=== PATIENT | male | born 1995 ===

== ENCOUNTER 2016-05-31 03:02 | Emergency (ER) | payer MEDICAID ==
--- NOTE | 2016-05-31 03:17 | C.PDOC ---
History Of Present Illness Patient presents to the ER with a complaint of a fever and cough for the past 2 days. Patient states he has had transient relief with Advil and is speaking in complete sentences. Denies any nausea, vomiting, or diarrhea. Time Seen by Provider: 05/31/16 03:17 Chief Complaint (Nursing): Fever History Per: Patient History/Exam Limitations: no limitations Onset/Duration Of Symptoms: Days (2) Current Symptoms Are (Timing): Still Present Associated Symptoms: Fever, Cough. denies: Vomiting, Diarrhea Severity: Moderate Pain Scale Rating Of: 4 Past Medical History Reviewed: Historical Data, Nursing Documentation, Vital Signs Vital Signs: Last Vital Signs Temp 101 F H 05/31/16 03:10 Pulse 90 05/31/16 03:10 Resp 18 05/31/16 03:10 BP 118/72 05/31/16 03:10 Pulse Ox 97 05/31/16 04:05 - Medical History PMH: Bronchitis Family History: States: Unknown Family Hx - Social History Hx Tobacco Use: No Hx Alcohol Use: No Hx Substance Use: No - Immunization History Hx Tetanus Toxoid Vaccination: No Hx Influenza Vaccination: No Hx Pneumococcal Vaccination: No Review Of Systems Constitutional: Positive for: Fever Cardiovascular: Negative for: Chest Pain, Palpitations Respiratory: Positive for: Cough. Negative for: Shortness of Breath Gastrointestinal: Negative for: Nausea, Vomiting, Diarrhea Physical Exam - Physical Exam Appears: Well, Non-toxic Skin: Warm, Dry Oral Mucosa: Moist Throat: Erythema (Oropharynx) Chest: Symmetrical Cardiovascular: Rhythm Regular Respiratory: No Rales, Rhonchi (Scattered), No Wheezing Gastrointestinal/Abdominal: Soft, No Tenderness Neurological/Psych: Oriented x3, Normal Speech, Normal Cognition ED Course And Treatment - Laboratory Results Result Diagrams: 05/31/16 03:44 05/31/16 03:44 O2 Sat by Pulse Oximetry: 97 (Room air) Pulse Ox Interpretation: Normal - Radiology CXR: Interpreted by Me, Viewed By Me CXR Interpretation: No: Infiltrates, Fracture, Pnemothorax Progress Note: Blood work, influenza A B, blood culture, chest x-ray, and urinalysis ordered. IV fluids and toradol IVP administered. Reevaluation Time: 05:43 Reassessment Condition: Improved Medical Decision Making Medical Decision Making: Upon provider reevaluation patient is feeling better, is medically stable, and requires no further treatment in the ED at this time. Patient will be discharged home . Counseling was provided and all questions were answered regarding diagnosis and need for follow up with the referred clinic. There is agreement to discharge plan. Return if symptoms persist or worsen. Disposition Counseled Patient/Family Regarding: Studies Performed, Diagnosis, Need For Followup - Disposition Referrals: [facility] at [facility] [Outside] Disposition: HOME/ ROUTINE Disposition Time: 03:17 Condition: FAIR Instructions: Viral Syndrome (ED), Fever in Adults (ED) - Clinical Impression Clinical Impression: Fever, Viral syndrome - Scribe Statement The provider has reviewed the documentation as recorded by the Scribe Donald Hutchinson All medical record entries made by the Clintibalexsander were at my direction and personally dictated by me. I have reviewed the chart and agree that the record accurately reflects my personal performance of the history, physical exam, medical decision making, and the department course for this patient. I have also personally directed, reviewed, and agree with the discharge instructions and disposition.
[2016-05-31] MEDS ORDERED: Sodium Chloride 0.9% 1,000 ML IV ONE ×2 (03:31→04:46)
[2016-05-31 03:53] LABS: BASO % 0.4 % (0.0-2.0); EOS % 0.3 % (0.0-4.0); LYMPH # 1.2 K/uL (1.0-4.3); LYMPH % 18.2 % (20.0-40.0); MEAN CELL VOLUME 86.5 fL (80.0-94.0); MEAN CORPUSCULAR HGB CONC 33.6 g/dL (33.0-37.0); MEAN PLATELET VOLUME 9.4 fL (7.2-11.7); MONO # 0.6 K/uL (0.0-0.8); MONO % 8.3 % (0.0-10.0); RED CELL DISTRIBUTION WIDTH 13.3 % (11.5-14.5); WHITE BLOOD COUNT 6.8 K/uL (4.8-10.8)
[2016-05-31 04:02] LABS: CHLORIDE 97 mmol/L (98-107); POTASSIUM 3.4 mmol/L (3.6-5.2); SODIUM 136 mmol/L (132-148)
[2016-05-31 04:04] LABS: GFR AFRICAN-AMERICAN > 60
[2016-05-31 04:05] LABS: BLOOD UREA NITROGEN 11 mg/dL (9-20); CALCIUM 8.2 mg/dl (8.6-10.4); CARBON DIOXIDE 25 mmol/L (22-30); GLUCOSE,RANDOM 93 mg/dL (75-110)
[2016-05-31 04:37] LABS: URINE BACTERIA RARE (<OCC); URINE BILIRUBIN NEGATIVE (NEGATIVE); URINE BLOOD NEGATIVE (NEGATIVE); URINE COLOR Yellow (YELLOW); URINE GLUCOSE (UA) NORMAL (Normal); URINE KETONE NEGATIVE (NEGATIVE); URINE LEUKOCYTE ESTERASE NEG Leu/uL (Negative); URINE PROTEIN NEGATIVE (NEGATIVE); URINE UROBILINOGEN NORMAL mg/dL (0.2-1.0); WBC URINE 1 /hpf (0-5)
[2016-05-31 06:43] VITALS: BP 126/84; PULSE 86; RESP 16; TEMP 99; O2SAT 98
--- NOTE | 2016-05-31 09:30 | RAD ---
HISTORY: SOB COMPARISON: Comparison is made to 08/04/2015 TECHNIQUE: Chest PA and lateral FINDINGS: LUNGS: No active pulmonary disease. PLEURA: No significant pleural effusion identified. No pneumothorax apparent. CARDIOVASCULAR: Normal. OSSEOUS STRUCTURES: No significant abnormalities. VISUALIZED UPPER ABDOMEN: Normal. OTHER FINDINGS: None. IMPRESSION: No active disease.
== END 2016-05-31 06:42 | disposition home or self-care (01) ==
LOC: C.ER 03:02
DX: B34.9 Viral infection, unspecified (principal); R50.81 Fever presenting with conditions classified elsewhere
CPT/HCPCS: 71020; 80048; 81001; 85025; 87040; 87804; 96361; 96374; 99284; J1885; J7040

== ENCOUNTER 2016-11-20 17:27 | Emergency (ER) | payer MEDICAID ==
[2016-11-20 17:47] VITALS: RESP 16; TEMP 98.5
--- NOTE | 2016-11-20 18:46 | C.PDOC ---
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 Patient states he did not take any medication.No h/o these similar symptoms. Patient denies trauma, fever, chest pain, SOB, neck pain or headache. Time Seen by Provider: 11/20/16 17:55 Chief Complaint (Nursing): Upper Extremity Problem/Injury History Per: Patient History/Exam Limitations: no limitations Onset/Duration Of Symptoms: Hrs (1hr PAPER SLITTER) Past Medical History Reviewed: Historical Data, Nursing Documentation, Vital Signs Vital Signs: Last Vital Signs Temp 98.5 F 11/20/16 17:43 Pulse 81 11/20/16 19:38 Resp 16 11/20/16 19:38 BP 125/85 11/20/16 19:38 Pulse Ox 98 11/20/16 19:38 - Medical History PMH: Bronchitis Family History: States: No Known Family Hx - Social History Hx Tobacco Use: No Hx Alcohol Use: Yes Hx Substance Use: No - Immunization History Hx Tetanus Toxoid Vaccination: No Hx Influenza Vaccination: No Hx Pneumococcal Vaccination: No Review Of Systems Except As Marked, All Systems Reviewed And Found Negative. Constitutional: Negative for: Fever Cardiovascular: Negative for: Chest Pain Respiratory: Negative for: Shortness of Breath Musculoskeletal: Positive for: Other ((+) Numbness and burning sensation to the left hand 1st, 2nd and 3rd digit). Negative for: Neck Pain Neurological: Negative for: Headache Physical Exam - Physical Exam Appears: Non-toxic, No Acute Distress Skin: Warm, Dry, No Rash Head: Atraumatic, Normacephalic Eye(s): bilateral: Normal Inspection, EOMI Nose: Normal Oral Mucosa: Moist Neck: Normal, Normal ROM, No Midline Cervical Tenderness, No Paracervical Tenderness, No Step Off Deformity, Supple Chest: Symmetrical, No Tenderness Cardiovascular: Rhythm Regular, No Murmur Respiratory: Normal Breath Sounds, No Rales, No Rhonchi, No Stridor, No Wheezing Extremity: Normal ROM, No Tenderness, Capillary Refill (<2 sec), No Swelling, Other (Left Hand - Has sensation but states "feels different".) Extremity: Bilateral: Normal Color And Temperature, Normal ROM Pulses: Left Radial: Normal, Right Radial: Normal Neurological/Psych: Oriented x3, Normal Speech, Normal Motor (5/5 against resistance) Gait: Steady ED Course And Treatment ECG: Interpreted By Me, Viewed By Me ECG Rhythm: Sinus Rhythm ECG Interpretation: Normal Rate From EC (BPM) O2 Sat by Pulse Oximetry: 99 (RA) Pulse Ox Interpretation: Normal Progress Note: Discussed with pt signs of concern and symptoms likely to nerve innflammation/ impingement. Instructed RICE and out pt follow up with PMD in 1- 2 days. Case disucssed with Dr Amezquita, agreed upon plan and discharge. Medical Decision Making Medical Decision Making: PLAN: * EKG Disposition - Disposition Referrals: Fuad Bar MD [Medical Doctor] - Disposition: HOME/ ROUTINE Disposition Time: 18:43 Condition: STABLE Additional Instructions: Rest and ice the area. Follow up with PMD in 1-2 days. 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 - Scribe Statement The provider has reviewed the documentation as recorded by the Scribe Kika Fenton All medical record entries made by the Scribe were at my direction and personally dictated by me. I have reviewed the chart and agree that the record accurately reflects my personal performance of the history, physical exam, medical decision making, and the department course for this patient. I have also personally directed, reviewed, and agree with the discharge instructions and disposition.
[2016-11-20 19:39] VITALS: BP 125/85; PULSE 81
[2016-11-20 21:02] VITALS: O2SAT 99
--- NOTE | 2016-11-23 16:08 | CARD ---
APPROVED REPORT EKG Measurement Heart [id number] ID [id number] <Conclusion> Normal sinus rhythm Normal ECG
== END 2016-11-20 19:38 | disposition home or self-care (01) ==
LOC: C.ER 17:27
DX: G56.02 Carpal tunnel syndrome, left upper limb (principal)

== ENCOUNTER 2018-02-12 20:14 | Emergency (ER) | payer OTHER, MEDICAID ==
[2018-02-12 20:30] VITALS: BP 116/72; PULSE 82; RESP 20; TEMP 98.1; O2SAT 97
[2018-02-12] MEDS ORDERED: Oxycodone/Acetaminophen 5/325 mg Tab PO STA (20:39)
[2018-02-12] MEDS ORDERED: Lidocaine 5% Patch TD STA (20:39)
--- NOTE | 2018-02-12 20:39 | C.PDOC ---
History Of Present Illness 22 year old male presents to the ED for evaluation of right chest wall contusion sustained prior to arrival. Reports he misstepped off step stool, fell backwards and struck arm of chair with chest. Pain is worse with movement. Patient is currently taking Zpack for bronchitis. 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 PS MISSTEPPED OFF STEP STOOL, FELL BACKWARDS AND STRUCK ARM OF CHAIR W CHEST. PAIN WORSE W MOVEMENT. CURRENTLY ON ZPACK FOR BRONCHITIS. EXAM NAD NONTOXIC HEENT ATRAUM CHEST WALL +CONTUSION R LOWER LAT CHEST WALL, NONTEND. +TEND ANTERIOR MID R CHEST WALL NO SWELL CREPITUS SKIN INTACT LUNGS CTA B/L NO W/R/R REMAINDER NEG - HPI Time Seen by Provider: 02/12/18 20:34 Chief Complaint (Nursing): Rib Injury History Per: Patient History/Exam Limitations: no limitations Onset/Duration Of Symptoms: Hrs Injury Occurred (Timing): Just Before Arrival Location Of Injury: Right: Chest (contusion), Anterior: Chest - Fall Fall:Prior To Injury: Slipped Past Medical History Reviewed: Historical Data, Nursing Documentation, Vital Signs Vital Signs: Last Vital Signs Temp 98.1 F 02/12/18 20:22 Pulse 82 02/12/18 20:22 Resp 20 02/12/18 20:22 BP 116/72 02/12/18 20:22 Pulse Ox 97 02/12/18 20:22 - Medical History PMH: Bronchitis Surgical History: No Surg Hx Family History: States: No Known Family Hx - Social History Hx Tobacco Use: No Hx Alcohol Use: Yes Hx Substance Use: No - Immunization History Hx Tetanus Toxoid Vaccination: No Hx Influenza Vaccination: No Hx Pneumococcal Vaccination: No Review Of Systems Except As Marked, All Systems Reviewed And Found Negative. Cardiovascular: Negative for: Chest Pain Respiratory: Negative for: Shortness of Breath Skin: Positive for: Other (right chest wall contusion ) Physical Exam - Physical Exam Appears: Non-toxic, No Acute Distress Skin: Warm, Dry, No Rash Head: Atraumatic, Normacephalic Eye(s): bilateral: Normal Inspection, PERRL, EOMI Ear(s): Bilateral: Normal Nose: Normal Oral Mucosa: Moist Neck: Supple Chest: Symmetrical, Other (+CONTUSION R LOWER LAT CHEST WALL, NONTEND. +TEND ANTERIOR MID R CHEST WALL NO SWELL CREPITUS) Cardiovascular: Rhythm Regular Respiratory: Normal Breath Sounds, No Rales, No Rhonchi, No Wheezing Gastrointestinal/Abdominal: Soft, No Tenderness Neurological/Psych: Oriented x3, Normal Speech Gait: Steady ED Course And Treatment O2 Sat by Pulse Oximetry: 97 (RA) Pulse Ox Interpretation: Normal - Radiology CXR: Interpreted by Me CXR Interpretation: Yes: No Acute Disease - Other Rad R RIB X-Ray: Interpreted by Me (NEG) Medical Decision Making Medical Decision Making: Plan - XR ribs/chest - Motrin 600mg PO - Lidoderm patch - Percocet On re-examination, patient is resting comfortably in no acute distress. Patient reports improvement of symptoms. Patient feels comfortable going home and will be discharged. Patient given follow up instructions. Instructed to return to ER if symptoms worsen or new symptoms arise. Disposition Counseled Patient/Family Regarding: Studies Performed, Diagnosis, Need For Followup, Rx Given - Disposition Referrals: YOUR,PMD [Other] Disposition: HOME/ ROUTINE Disposition Time: 20:49 Condition: IMPROVED Prescriptions: Lidocaine 5% [Lidoderm] 2 patch TOP ONCE PRN #20 patch MDD 3 PATCHES PRN Reason: Pain, Moderate (4-7) Naproxen 500 mg PO BID #30 tab Tramadol HCl [Ultram] 50 mg PO QID #20 tab Instructions: Bruised Rib (DC) Forms: Work/School/Gym Excuse, [employer] (Albanian) - Clinical Impression Clinical Impression: Rib contusion - Scribe Statement The provider has reviewed the documentation as recorded by the Scribe Neha Bearden All medical record entries made by the Scribe were at my direction and personally dictated by me. I have reviewed the chart and agree that the record accurately reflects my personal performance of the history, physical exam, medical decision making, and the department course for this patient. I have also personally directed, reviewed, and agree with the discharge instructions and disposition.
[2018-02-12] MEDS ORDERED: Oxycodone/Acetaminophen 5/325 mg Tab ONE (20:48)
[2018-02-12] MEDS ORDERED: Lidocaine 5% Patch TD ONE (20:49)
--- NOTE | 2018-02-13 08:47 | RAD ---
Date of service: 02/12/2018 PROCEDURE: Radiographs of the Chest and Right Ribs. HISTORY: TRAUMA COMPARISON: Comparison is made with 05/31/2016 TECHNIQUE: Frontal radiograph of the chest and multiple oblique radiographs of the right ribs were obtained. FINDINGS: RIGHT RIBS: No fracture or focal lesion visualized. LUNGS: Clear. PLEURA: No pneumothorax or pleural fluid. CARDIOVASCULAR: Normal cardiac size. No pulmonary vascular congestion. No aortic atherosclerotic calcification present OTHER FINDINGS: None. IMPRESSION: Unremarkable radiographs of the chest and right ribs. No right rib fracture.
== END 2018-02-12 21:00 | disposition home or self-care (01) ==
LOC: C.ER 20:14
DX: S20.211A Contusion of right front wall of thorax, initial encounter (principal); W10.9XXA Fall (on) (from) unspecified stairs and steps, initial encounter